=== PATIENT | female | born 1950 | race Caucasian/White ===

== ENCOUNTER 2016-10-26 07:38 | Emergency (ER) | payer MEDICARE, BC ==
[2016-10-26 08:03] VITALS: BP 124/77
--- NOTE | 2016-10-26 08:30 | UC ---
Ear Complaint HPI - HPI Summary HPI Summary: Left ear possible FB. She has no pain or symptoms but she wonders if there is a piece of her hearing aid remaining in the left ear. - History of Current Complaint Chief Complaint: UCEar Stated Complaint: LEFT EAR PAIN Time Seen by Provider: 10/26/16 08:21 Hx Obtained From: Patient Onset/Duration: Gradual Onset Severity Currently: None Aggravating Factors: Nothing Alleviating Factors: Nothing Associated Signs/Symptoms: Negative: Discharge, Hearing Loss, Foreign Body Sensation, Trauma to Ear, Swelling @, URI Symptoms - Allergies/Home Medications Allergies/Adverse Reactions: Allergies Allergy/AdvReac Type Severity Reaction Status Date / Time No Known Allergies Allergy Verified 10/26/16 07:54 Home Medications: Home Medications Milnacipran(NF) [Savella(NF)] 1 tab BID 10/26/16 [History Confirmed 10/26/16] Mometasone 220 MCG MDI * [Asmanex 220 MCG MDI *] 2 puff DAILY 10/26/16 [History Confirmed 10/26/16] Nebivolol HCl [Bystolic] 1 tab DAILY 10/26/16 [History Confirmed 10/26/16] Valsartan/HCTZ 160/12.5(NF) [Diovan HCT 160/12.5 (NF)] 1 tab QPM 10/26/16 [ History Confirmed 10/26/16] PMH/Surg Hx/FS Hx/Imm Hx Previously Healthy: No - poor hearing. - Surgical History Surgical History: Yes Surgery Procedure, Year, and Place: Deviated septum. LEFT torn meniscus. Total hip replacement. Appy - Family History Known Family History: Positive: Other - not related but reviewedd. - Social History Alcohol Use: None Substance Use Type: None Smoking Status (MU): Never Smoked Tobacco - Immunization History Most Recent Influenza Vaccination: 2016 Most Recent Tetanus Shot: UNKNOWN Most Recent Pneumonia Vaccination: UTD Review of Systems ENT: Other - possibel left fb. All Other Systems Reviewed And Are Negative: Yes Physical Exam Triage Information Reviewed: Yes Appearance: Well-Appearing, No Pain Distress, Well-Nourished Vital Signs: Initial Vital Signs Temp 96.8 F 10/26/16 07:58 Pulse 79 10/26/16 07:58 Resp 18 10/26/16 07:58 BP 124/77 10/26/16 07:58 Pulse Ox 98 07/26/17 07:58 Vital Signs Reviewed: Yes Eye Exam: Normal Eyes: Positive: Conjunctiva Clear. Negative: Conjunctiva Inflamed ENT Exam: Normal ENT: Positive: TMs normal, Other: - left ear canal is a narrow slit. I can see the tm whcih is normal but there could be a small FB. Non tender.. Negative: TM bulging, TM dull, TM red, Tonsillar swelling, Tonsillar exudate, Trismus Neck exam: Normal Respiratory Exam: Normal Cardiovascular Exam: Normal Abdominal Exam: Normal Musculoskeletal Exam: Normal Neurological Exam: Normal Psychological Exam: Normal Skin Exam: Normal Procedures - Procedure Summary Procedure Summary: left ear irrigation to remove possible FB with 18 guage angiocath and water/ h2o2. Ear Complaint Course/Dx - Differential Dx/Diagnosis Differential Diagnosis/HQI/PQRI: Foreign Body Provider Diagnoses: possible left ear canal fb. left ear lavage to remove possible FB. Discharge - Discharge Plan Condition: Good Disposition: HOME Patient Education Materials: Ear Foreign Body (ED) Referrals: Yumi Oswald MD [Primary Care Provider] - If Needed
== END 2016-10-26 08:55 | disposition home or self-care (01) ==
LOC: UCCORT 07:38
DX: H92.02 Otalgia, left ear (principal)
CPT/HCPCS: 99202; G0463